=== PATIENT | male | born 1975 | race Hispanic/Latino ===

== ENCOUNTER 2017-06-11 00:29 | Emergency (ER) | payer SELFPAY ==
[2017-06-11] MEDS ORDERED: Ketorolac Tromethamine 30 MG/ML VIAL ONE (01:15)
== END 2017-06-11 01:35 | disposition home or self-care (01) ==
LOC: ERS 00:29
DX: M10.9 Gout, unspecified (principal); F17.210 Nicotine dependence, cigarettes, uncomplicated
CPT/HCPCS: 96372; J1885

== ENCOUNTER 2017-07-16 10:13 | Emergency (ER) | payer SELFPAY ==
--- NOTE | 2017-07-16 11:38 | RAD ---
RIGHT KNEE FOUR VIEWS: HISTORY: A 42-year-old male with right knee pain. FINDINGS: There are some degenerative changes of the right knee joint. There is increased density a nd distention of the suprapatellar recess, evidence for joint effusion. IMPRESSION: Evidence for joint effusion with a distended suprapatellar recess. No evidence for acute fracture or dislocation. POS: [facility]
[2017-07-16] MEDS ORDERED: Ketorolac Tromethamine 30 MG/ML VIAL ONE (11:59)
== END 2017-07-16 12:27 | disposition home or self-care (01) ==
LOC: ERS 10:13
DX: M70.41 Prepatellar bursitis, right knee (principal); F17.210 Nicotine dependence, cigarettes, uncomplicated
CPT/HCPCS: 96372; J1885

== ENCOUNTER 2024-06-01 17:17 | Emergency (ER) | payer SELFPAY ==
[2024-06-01] MEDS ORDERED: Ketorolac Tromethamine 30 MG (1 mL) VIAL ONE (18:59)
[2024-06-01] MEDS ORDERED: Dexamethasone 10 MG/ML VIAL ONE (18:59)
[2024-06-01] MEDS ORDERED: diphenhydrAMINE 50 MG/ML VIAL ONE (18:59)
[2024-06-01] MEDS ORDERED: Metoclopramide HCl 10 MG (2 mL) VIAL ONE (18:59)
[2024-06-01 19:44] LABS: #Basophils 0.06 10x3/uL (0.0-0.2); %Basophils 0.6 % (0.0-1.0); %Eosinophils 1.2 % (0.0-10.0); %Lymphocytes 19.2 % (21.0-51.0); %Monocytes 9.9 % (0.0-10.0); %Neutrophils 68.8 % (42.0-75.0); Hematocrit 47.9 % (42.0-52.0); Hemoglobin 16.6 g/dL (14.0-18.0); Mean Corpuscular HGB CONC 34.7 g/dL (32.0-36.0); Mean Corpuscular Hemoglobin 34.1 pg (27.0-31.0); Mean Corpuscular Volume 98.4 fL (78.0-98.0); Mean Platelet Volume 10.6 fL (7.4-10.4); Platelet Count 251 10x3/uL (130-400); RBC Distribution Width 13.3 % (11.5-14.5); Red Blood Cell (RBC) Count 4.87 mill/uL (4.70-6.10)
[2024-06-01 19:46] LABS: ALT (SGPT) 93 U/L (8-55); AST (SGOT) 76 U/L (5-34); Albumin 3.7 g/dL (3.5-5.0); Alkaline Phosphatase 164 U/L (40-110); Anion Gap 16 mmol/L (10-20); BUN (Urea Nitrogen) 7 mg/dL (8.9-20.6); Bilirubin, Total 0.3 mg/dL (0.2-1.2); CRP,High Sensitivity (Inhouse) 5.66 mg/dL (< or = 0.5); Calc. Creatinine Clearance 0 mL/min (70-130); Calcium 9.5 mg/dL (7.8-10.44); Carbon Dioxide 20 mmol/L (22-29); Chloride 108 mmol/L (98-107); Estimated GFR 85; Glucose 125 mg/dL (70-105); Potassium 4.3 mmol/L (3.5-5.1); Protein, Total 7.7 g/dL (6.0-8.3); Sodium 140 mmol/L (136-145)
== END 2024-06-01 21:18 | disposition home or self-care (01) ==
LOC: ERS 17:17
DX: J01.00 Acute maxillary sinusitis, unspecified (principal); J01.10 Acute frontal sinusitis, unspecified; J01.20 Acute ethmoidal sinusitis, unspecified; R51.9 Headache, unspecified; I10 Essential (primary) hypertension; F17.210 Nicotine dependence, cigarettes, uncomplicated; E78.5 Hyperlipidemia, unspecified; Z79.899 Other long term (current) drug therapy
CPT/HCPCS: 70450; 80053; 85025; 86141; 96374; 96375; J1100; J1200; J1885; J2765